=== PATIENT | female | born 1935 | race Two or more races ===

== ENCOUNTER 2019-02-13 15:05 | Emergency (ER) | payer OTHER ==
[~2019-02-13] VITALS: Ht 139.7 cm; Wt 49.9 kg
[~2019-02-13 15:05] MED LIST: GLUCOPHAGE XR500 MG
[2019-02-13] MEDS ORDERED: RANITIDINE HCL300 MG PO (15:32)
[2019-02-13] MEDS ORDERED: NORVASC2.5 M1 PO (15:32)
[2019-02-13] MEDS ORDERED: SIMVASTATIN20 MG PO (15:32)
[2019-02-13] MEDS ORDERED: PANTOPRAZOLE SO40 MG PO (15:33)
[2019-02-13] MEDS ORDERED: ZETIA10 MG PO (15:33)
[2019-02-13] MEDS ORDERED: GLIMEPIRIDE2 MG PO (15:33)
[2019-02-13] MEDS ORDERED: FAMOTIDINE40 MG PO (15:33)
[2019-02-13] MEDS ORDERED: HUMULIN N100 UNIT/2 IJ (15:34)
== END 2019-02-13 18:49 | disposition home or self-care (01) ==
LOC: ER 15:05
DX: R06.02 Shortness of breath (principal); F06.4 Anxiety disorder due to known physiological condition

== ENCOUNTER 2022-06-26 12:58 | Emergency (ER) | payer OTHER ==
[~2022-06-26] VITALS: Ht 134.6 cm; Wt 51.7 kg
[~2022-06-26 12:58] MED LIST changes: +FAMOTIDINE40 MG PO; +GLIMEPIRIDE2 MG PO; +HUMULIN N100 UNIT/2 IJ; +NORVASC2.5 M1 PO; +PANTOPRAZOLE SO40 MG PO; +RANITIDINE HCL300 MG PO; +SIMVASTATIN20 MG PO; +ZETIA10 MG PO
== END 2022-06-26 16:03 | disposition home or self-care (01) ==
LOC: ER 12:58
DX: F41.9 Anxiety disorder, unspecified (principal); Z88.0 Allergy status to penicillin; Z88.2 Allergy status to sulfonamides; E11.65 Type 2 diabetes mellitus with hyperglycemia; Z79.84 Long term (current) use of oral hypoglycemic drugs; I10 Essential (primary) hypertension; Z20.822 Contact with and (suspected) exposure to COVID-19

== ENCOUNTER 2023-12-11 00:52 | Emergency (ER) | payer OTHER ==
[~2023-12-11] VITALS: Ht 134.6 cm; Wt 51.7 kg
[2023-12-11] MEDS ORDERED: KETOROLAC TROMETHAMINE 30 MG VIAL IV STA ×2 (03:00→09:58)
[2023-12-11] MEDS ORDERED: ORPHENADRINE CITRATE 30 MG/ML AMPUL IV STA (03:01)
[2023-12-11 03:41] LABS: URINE APPEARANCE Clear; URINE BILIRRUBIN Negative (NEGATIVE); URINE BLOOD Trace; URINE COLOR Yellow; URINE GLUCOSE Negative (NEGATIVE); URINE LEUKOCYTE Negative; URINE NITRATE Negative; URINE PROTEIN Negative (NEGATIVE); URINE UROBILINOGEN 0.2 E.U./dl
[2023-12-11 03:41] LABS: HEMATOCRIT 40.6 % (36.0-45.00); HEMOGLOBIN 13.6 g/dL (12.0-15.00); MEAN CELL VOLUME 88.7 fL (80.00-100.00); MEAN CORPUSCULAR HEMOGLOBIN 29.6 pg (27.00-32.0); MEAN CORPUSCULAR HGB CONC 33.4 g/dl (32.0-36.0); PLATELET COUNT 231 K/uL (150-450); RED BLOOD COUNT 4.58 M/uL (4.00-6.00); RED CELL DISTRIBUTION WIDTH 13.7 % (11.5-14.5)
[2023-12-11 03:44] LABS: URINE BACTERIA 12.5 uL (0.0-1933); URINE RBC 8.4 uL (0.0-20.8)
[2023-12-11 04:04] LABS: ALBUMIN 3.8 gm/dL (3.4-5.0); BILIRUBIN TOTAL 0.36 mg/dL (0.3-1.2); CALCIUM 9.8 mg/dL (8.5-10.1); CREATININE SERUM 1.49 mg/dL (0.55-1.02); GFR 33.18; GLOBULINA 3.9 G/DL (2.4-3.5); POTASSIUM 4.22 mEq/L (3.5-5.1); TOTAL PROTEIN 7.7 gm/dL (6.4-8.2)
[2023-12-11 04:30] LABS: URINE EPITHELIAL CELLS 1.2 uL (0.0-38.8); URINE WBC 1.5 uL (0.0-23.2)
[2023-12-11] MEDS ORDERED: MEPERIDINE HCL/PF 25 MG/ML VIAL IM STA (07:56)
[2023-12-11] MEDS ORDERED: DEXAMETHASONE SODIUM PHOSPHATE 4 MG/ML VIAL IV STA (09:57)
== END 2023-12-11 13:00 | disposition home or self-care (01) ==
LOC: ER → EDBD 00:52 → ER 03:26
PROVIDERS: General Practice
DX: M54.50 Low back pain, unspecified (principal); R06.02 Shortness of breath; E11.9 Type 2 diabetes mellitus without complications; Z79.4 Long term (current) use of insulin; Z20.822 Contact with and (suspected) exposure to COVID-19
CPT/HCPCS: 36415; 71046; 72100; 72131; 93005; 96365; 96372; 99284; J1100; J1885; J2360; J3490